=== PATIENT | male | born 1980 | race African-American/Black ===

== ENCOUNTER 2019-11-27 00:32 | Emergency (ER) | payer OTHER ==
[2019-11-27 01:54] LABS: Bacteria,Urine 1+ /HPF (Negative); Bilirubin,Urine NEG (Negative); Blood,Urine LG (Negative); Color,Urine Yellow (Yellow); Mucus,Urine 2+ /HPF; Protein,Urine <15 mg/dL mg/dL (Negative); Urobilinogen,Urine < 2.0 mg/dL (<2.0)
[2019-11-27 01:54] LABS: Basophils % (Auto) 0.4 % (0.0-1.8); Eosinophils % (Auto) 0.3 % (0.0-4.3); Hematocrit 41.9 % (35.5-45.6); Lymphocytes # (Auto) 1.6 K/mm3 (1.2-5.4); Lymphocytes % (Auto) 12.1 % (13.4-35.0); Mean Corpuscular HGB Conc 31 % (32-34); Monocytes # (Auto) 0.8 K/mm3 (0.0-0.8); Monocytes % (Auto) 5.9 % (0.0-7.3); Platelet Count 280 K/mm3 (140-440); Red Blood Count 6.07 M/mm3 (3.65-5.03); Red Cell Distribution Width 14.8 % (13.2-15.2)
[2019-11-27 01:59] LABS: Mean Corpuscular Volume 69 fl (84-94)
[2019-11-27 02:09] LABS: Albumin 4.4 g/dL (3.9-5); BUN/Creatinine Ratio 17; Blood Urea Nitrogen 17 mg/dL (9-20); Calcium 9.3 mg/dL (8.4-10.2); Hemolysis Index 5
[2019-11-27 02:22] LABS: Alanine Aminotransferase 808 units/L (7-56)
[2019-11-27] MEDS ORDERED: ONDANSETRON 4 MG/2 ML INJ IV ONE (03:38)
[2019-11-27] MEDS ORDERED: HYDROmorphone 1 MG/1 ML INJ IV ONE ×2 (03:38→05:05)
[2019-11-27 04:22] VITALS: BP 103/75
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
[2019-11-27 04:37] LABS: Hepatitis B Surface Antigen Non-Reactive (Negative); Hepatitis C Virus Antibody Non-Reactive (NonReactive)
[2019-11-27 04:53] LABS: INR 1.01 (0.87-1.13)
[2019-11-27 04:54] LABS: Partial Thromboplastin Time 23.5 Sec. (24.2-36.6)
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
== END 2019-11-27 06:16 | disposition other institution (70) ==
LOC: ED 00:32
DX: S36.113A Laceration of liver, unspecified degree, initial encounter (principal); S36.039A Unspecified laceration of spleen, initial encounter; K66.1 Hemoperitoneum; V49.49XA Driver injured in collision with other motor vehicles in traffic accident, initial encounter; Y93.89 Activity, other specified; Y92.488 Other paved roadways as the place of occurrence of the external cause; Y99.8 Other external cause status
CPT/HCPCS: 36415; 71275; 74177; 80053; 80074; 81001; 82140; 83690; 85025; 85610; 85730; 96374; 96375; 96376; 99291; J1170; J2405; Q9967